=== PATIENT | male | born 1950 | race African-American/Black ===

== ENCOUNTER 2018-09-14 08:08 | Emergency (ER) | payer MEDICARE, MEDICAID ==
[~2018-09-14] VITALS: Ht 172.7 cm; Wt 71.0 kg
[2018-09-14 08:25] VITALS: BP 123/99
== END 2018-09-14 11:47 | disposition home or self-care (01) ==
LOC: ER 08:31
DX: T69.022A Immersion foot, left foot, initial encounter (principal); T69.021A Immersion foot, right foot, initial encounter; X31.XXXA Exposure to excessive natural cold, initial encounter; R03.0 Elevated blood-pressure reading, without diagnosis of hypertension; Z59.0 Homelessness; F17.210 Nicotine dependence, cigarettes, uncomplicated
CPT/HCPCS: 99283

== ENCOUNTER 2020-06-15 13:57 | Inpatient (IN) | payer MEDICARE, MEDICAID ==
[~2020-06-15] VITALS: Ht 172.7 cm; Wt 64.6 kg
[2020-06-15 15:45] LABS: BASOPHILS % 0.5 % (0.0-2.0); EOSINOPHILS % 0.5 % (0.0-5.0); HEMATOCRIT. 46.2 % (42.0-52.0); HEMOGLOBIN. 15.7 g/dL (14.0-18.0); LYMPHOCYTES % 10.9 % (20.0-50.0); MEAN CORPUSCULAR VOLUME 88.3 fL (80.0-94.0); MEAN PLATELET VOLUME 8.2 fl (7.4-10.4); MONOCYTES % 7.6 % (2.0-8.0); NEUTROPHILS % 80.5 % (40.0-76.0); PLATELET 262 x1000/uL (130-400); RED BLOOD CELL COUNT 5.23 mill/uL (4.7-6.1); RED CELL DISTRIBUTION WIDTH 13.9 % (11.6-14.6)
[2020-06-15 15:50] LABS: CHLORIDE 103 mEq/L (98-107)
[2020-06-15 15:52] LABS: INR 1.1; PROTHROMBIN TIME 11.7 sec (9.6-11.0)
[2020-06-15 15:53] LABS: ETHANOL BLOOD < 10 mg/dL
[2020-06-15 15:56] LABS: LDL CHOLESTEROL 165 mg/dL (5-100)
[2020-06-15 16:52] LABS: CLARITY URINE CLEAR (CLEAR); COLOR URINE YELLOW (YELLOW); KETONES URINE NEGATIVE (NEGATIVE); LEUKOCYTE ESTERASE URINE 1+ (NEGATIVE); NITRITE URINE POSITIVE (NEGATIVE); OCCULT BLOOD URINE 2+ (NEGATIVE); PH URINE 6.5 (4.5-8.0); PROTEIN URINE NEGATIVE (NEGATIVE); SPECIFIC GRAVITY URINE 1.004 (1.005-1.030)
[2020-06-15 17:16] LABS: *AMPHETAMINES SCREEN URINE NEGATIVE (NEGATIVE); *BARBITURATES SCREEN URINE NEGATIVE (NEGATIVE)
[2020-06-15 17:17] LABS: *BENZODIAZEPINES SCREEN URINE NEGATIVE (NEGATIVE); *COCAINE SCREEN URINE NEGATIVE (NEGATIVE); CANNABINOID URINE SCREEN NEGATIVE (NEGATIVE); METHADONE URINE SCREEN NEGATIVE (NEGATIVE); OPIATES URINE SCREEN NEGATIVE (NEGATIVE); PHENCYCLIDINE URINE SCREEN NEGATIVE (NEGATIVE)
[2020-06-15] MEDS ORDERED: DOCUSATE SODIUM 100MG CAPSULE PO PRN (18:30)
[2020-06-15] MEDS ORDERED: ONDANSETRON HCL 4MG/2ML INJ IV PRN (18:30)
[2020-06-15] MEDS ORDERED: LORAZEPAM 0.5MG TABLET PO PRN (18:30)
[2020-06-15] MEDS ORDERED: IPRATROPIUM/ALBUTEROL 0.5-3(2.5)MG/3ML NEB HHN PRN (18:30)
[2020-06-15] MEDS ORDERED: HYDROCODONE/ACETAMINOPHEN 5/325MG TABLET PO PRN (18:30)
[2020-06-15 21:10] VITALS: BP 158/99
[2020-06-16] VITALS (7 sets, daily range): BP systolic 132–161; BP diastolic 83–98
[2020-06-16 06:05] LABS: BASOPHILS % 0.6 % (0.0-2.0); EOSINOPHILS % 1.4 % (0.0-5.0); HEMATOCRIT. 44.4 % (42.0-52.0); HEMOGLOBIN. 15.1 g/dL (14.0-18.0); LYMPHOCYTES % 18.1 % (20.0-50.0); MEAN CORPUSCULAR HEMOGLOBIN 29.8 pg (28.0-32.0); MEAN CORPUSCULAR VOLUME 87.4 fL (80.0-94.0); MEAN PLATELET VOLUME 8.5 fl (7.4-10.4); MONOCYTES % 10.8 % (2.0-8.0); NEUTROPHILS % 69.1 % (40.0-76.0); PLATELET 249 x1000/uL (130-400); RED BLOOD CELL COUNT 5.08 mill/uL (4.7-6.1); RED CELL DISTRIBUTION WIDTH 13.6 % (11.6-14.6)
[2020-06-16 06:14] LABS: CHLORIDE 106 mEq/L (98-107)
[2020-06-16] MEDS ORDERED: INFLUENZA VACCINE 05/PF 0.5 ML VIAL IM ONE (12:00)
[2020-06-16] MEDS ORDERED: LORAZEPAM 2MG/ML CPJ IV SCH (13:00)
[2020-06-16] MEDS ORDERED: SODIUM CHLORIDE 0.9% 750 ML IV SCH (13:15)
[2020-06-16] MEDS: ASPIRIN 81MG TABLET PO SCH (13:22)
[2020-06-16] MEDS ORDERED: LORAZEPAM 2MG/ML CPJ IV NR ×2 (17:15)
[2020-06-16] MEDS ORDERED: GADOTERATE MEGLUMINE 5 MMOL/10 ML VIAL IV ONE (17:31)
[2020-06-16] MEDS: ATORVASTATIN CALCIUM 40MG TABLET PO SCH (21:00)
[2020-06-17] VITALS (7 sets, daily range): BP systolic 99–186; BP diastolic 65–121
[2020-06-17 06:17] LABS: HEMATOCRIT. 42.1 % (42.0-52.0); HEMOGLOBIN. 14.7 g/dL (14.0-18.0); MEAN CORPUSCULAR HEMOGLOBIN 31.3 pg (28.0-32.0); MEAN CORPUSCULAR VOLUME 89.8 fL (80.0-94.0); MEAN PLATELET VOLUME 8.5 fl (7.4-10.4); PLATELET 229 x1000/uL (130-400); RED BLOOD CELL COUNT 4.69 mill/uL (4.7-6.1); RED CELL DISTRIBUTION WIDTH 13.4 % (11.6-14.6)
[2020-06-17 06:40] LABS: CHLORIDE 105 mEq/L (98-107)
[2020-06-17 06:50] LABS: VITAMIN B12 SERUM 511 pg/mL (211-911)
[2020-06-17] MEDS: ASPIRIN 81MG TABLET PO SCH (08:05)
[2020-06-17] MEDS: LABETALOL 5MG/ML SYR 20 MG/4 ML SYRINGE IV PRN (09:35)
[2020-06-17] MEDS: NICOTINE 21MG PATCH TD SCH (10:49)
[2020-06-17] MEDS ORDERED: DIPHENHYDRAMINE 50MG/ML VIAL IV PRN (11:00)
[2020-06-17] MEDS ORDERED: HALOPERIDOL LACTATE 5MG/ML VIAL IM NR (11:00)
[2020-06-17] MEDS ORDERED: SODIUM CHLORIDE 0.9% 750 ML IV SCH (12:00)
[2020-06-17] MEDS ORDERED: IOHEXOL-350 100 ML BOTTLE ONE (13:03)
[2020-06-17] MEDS ORDERED: KCL 20MEQ/100ML PREMIX 100 ML IV NR (13:30)
[2020-06-17 20:26] LABS: PLATELET ESTIMATE NORMAL
[2020-06-17] MEDS: ATORVASTATIN CALCIUM 40MG TABLET PO SCH (21:00)
[2020-06-18] VITALS: BP 131/91
[2020-06-18] MEDS: HALOPERIDOL LACTATE 5MG/ML VIAL IM PRN ×3 (00:28→21:52)
[2020-06-18 04:00] VITALS: BP 171/111
[2020-06-18] MEDS: LABETALOL 5MG/ML SYR 20 MG/4 ML SYRINGE IV PRN (05:57)
[2020-06-18 08:00] VITALS: BP 163/103
[2020-06-18] MEDS: ASPIRIN 81MG TABLET PO SCH ×2 (08:25→10:16)
[2020-06-18] MEDS: METOPROLOL TARTRATE 25MG TABLET PO SCH ×2 (10:16→21:58)
[2020-06-18] MEDS: NICOTINE 21MG PATCH TD SCH (10:17)
[2020-06-18 12:00] VITALS: BP 155/83
[2020-06-18 16:00] VITALS: BP 134/90
[2020-06-18 20:00] VITALS: BP 160/102
[2020-06-18] MEDS: ATORVASTATIN CALCIUM 40MG TABLET PO SCH (21:58)
[2020-06-19] VITALS: BP 183/77
[2020-06-19] MEDS: LABETALOL 5MG/ML SYR 20 MG/4 ML SYRINGE IV PRN (01:42)
[2020-06-19 04:00] VITALS: BP 123/65
[2020-06-19 06:32] LABS: HEMATOCRIT. 42.7 % (42.0-52.0); HEMOGLOBIN. 14.8 g/dL (14.0-18.0); MEAN CORPUSCULAR HEMOGLOBIN 30.6 pg (28.0-32.0); MEAN CORPUSCULAR VOLUME 87.9 fL (80.0-94.0); MEAN PLATELET VOLUME 8.8 fl (7.4-10.4); PLATELET 197 x1000/uL (130-400); RED BLOOD CELL COUNT 4.85 mill/uL (4.7-6.1); RED CELL DISTRIBUTION WIDTH 13.8 % (11.6-14.6)
[2020-06-19 06:58] LABS: CHLORIDE 108 mEq/L (98-107)
[2020-06-19 07:53] VITALS: BP 130/72
[2020-06-19] MEDS: LORAZEPAM 2MG/ML CPJ IV PRN (08:41)
[2020-06-19] MEDS: ASPIRIN 81MG TABLET PO SCH (09:13)
[2020-06-19] MEDS: NICOTINE 21MG PATCH TD SCH (09:14)
[2020-06-19] MEDS: METOPROLOL TARTRATE 25MG TABLET PO SCH ×2 (09:14→21:17)
[2020-06-19 12:00] VITALS: BP 118/76
[2020-06-19 13:43] LABS: PLATELET ESTIMATE NORMAL
[2020-06-19 16:00] VITALS: BP 121/79
[2020-06-19 20:00] VITALS: BP 138/95
[2020-06-19] MEDS: QUETIAPINE FUMARATE 25MG TABLET PO SCH (21:17)
[2020-06-19] MEDS: ATORVASTATIN CALCIUM 40MG TABLET PO SCH (21:17)
[2020-06-20] VITALS: BP 136/87
[2020-06-20] MEDS: LORAZEPAM 2MG/ML CPJ IV PRN (02:34)
[2020-06-20 04:00] VITALS: BP 128/88
[2020-06-20] MEDS: ASPIRIN 81MG TABLET PO SCH (09:00)
[2020-06-20] MEDS: NICOTINE 21MG PATCH TD SCH (10:02)
[2020-06-20 10:03] LABS: MEAN CORPUSCULAR HEMOGLOBIN 31.5 pg (28.0-32.0); MEAN CORPUSCULAR VOLUME 90.4 fL (80.0-94.0); MEAN PLATELET VOLUME 8.9 fl (7.4-10.4); PLATELET 185 x1000/uL (130-400); RED BLOOD CELL COUNT 4.75 mill/uL (4.7-6.1); RED CELL DISTRIBUTION WIDTH 13.7 % (11.6-14.6)
[2020-06-20] MEDS: METOPROLOL TARTRATE 25MG TABLET PO SCH ×2 (10:03→21:02)
[2020-06-20] MEDS: QUETIAPINE FUMARATE 25MG TABLET PO SCH ×2 (10:03→21:02)
[2020-06-20] MEDS: SODIUM CHLORIDE 0.9% 1,000 ML IV SCH (12:06)
[2020-06-20 13:59] LABS: PLATELET ESTIMATE NORMAL
[2020-06-20 20:00] VITALS: BP 170/104
[2020-06-20] MEDS: LABETALOL 5MG/ML SYR 20 MG/4 ML SYRINGE IV PRN (21:02)
[2020-06-20] MEDS: ATORVASTATIN CALCIUM 40MG TABLET PO SCH (21:02)
[2020-06-21] VITALS: BP 154/96
[2020-06-21 04:00] VITALS: BP 152/81
[2020-06-21] MEDS: SODIUM CHLORIDE 0.9% 1,000 ML IV SCH ×2 (04:52→21:17)
[2020-06-21 07:25] LABS: BASOPHILS % 0.5 % (0.0-2.0); EOSINOPHILS % 0.2 % (0.0-5.0); HEMATOCRIT. 45.1 % (42.0-52.0); HEMOGLOBIN. 15.4 g/dL (14.0-18.0); LYMPHOCYTES % 13.9 % (20.0-50.0); MEAN CORPUSCULAR HEMOGLOBIN 30.5 pg (28.0-32.0); MEAN CORPUSCULAR VOLUME 89.3 fL (80.0-94.0); MEAN PLATELET VOLUME 8.9 fl (7.4-10.4); MONOCYTES % 11.4 % (2.0-8.0); PLATELET 182 x1000/uL (130-400); RED BLOOD CELL COUNT 5.05 mill/uL (4.7-6.1); RED CELL DISTRIBUTION WIDTH 13.8 % (11.6-14.6)
[2020-06-21 07:42] LABS: CHLORIDE 113 mEq/L (98-107)
[2020-06-21 07:57] VITALS: BP 141/84
[2020-06-21] MEDS: METOPROLOL TARTRATE 25MG TABLET PO SCH ×2 (08:48→21:17)
[2020-06-21] MEDS: QUETIAPINE FUMARATE 25MG TABLET PO SCH ×2 (08:49→21:16)
[2020-06-21] MEDS: NICOTINE 21MG PATCH TD SCH (08:49)
[2020-06-21 11:34] VITALS: BP 142/77
[2020-06-21 16:12] VITALS: BP 94/70
[2020-06-21 20:00] VITALS: BP 159/99
[2020-06-21] MEDS: ATORVASTATIN CALCIUM 40MG TABLET PO SCH (21:17)
[2020-06-22 00:48] VITALS: BP 137/80
[2020-06-22 04:00] VITALS: BP 168/103
[2020-06-22] MEDS: LABETALOL 5MG/ML SYR 20 MG/4 ML SYRINGE IV PRN (04:16)
[2020-06-22 07:20] LABS: BASOPHILS % 0.6 % (0.0-2.0); EOSINOPHILS % 0.1 % (0.0-5.0); HEMOGLOBIN. 15.4 g/dL (14.0-18.0); LYMPHOCYTES % 12.4 % (20.0-50.0); MEAN CORPUSCULAR HEMOGLOBIN 30.8 pg (28.0-32.0); MONOCYTES % 13.6 % (2.0-8.0); NEUTROPHILS % 73.3 % (40.0-76.0); PLATELET 151 x1000/uL (130-400); RED CELL DISTRIBUTION WIDTH 13.6 % (11.6-14.6)
[2020-06-22 07:28] LABS: CHLORIDE 117 mEq/L (98-107)
[2020-06-22 08:20] VITALS: BP 133/92
[2020-06-22] MEDS: NICOTINE 21MG PATCH TD SCH (09:29)
[2020-06-22] MEDS: QUETIAPINE FUMARATE 25MG TABLET PO SCH ×2 (09:29→21:12)
[2020-06-22] MEDS: METOPROLOL TARTRATE 25MG TABLET PO SCH ×2 (09:29→21:12)
[2020-06-22] MEDS: HALOPERIDOL LACTATE 5MG/ML VIAL IM PRN ×2 (09:54→21:10)
[2020-06-22] MEDS: SODIUM CHLORIDE 0.45% 1,000 ML IV SCH (13:01)
[2020-06-22] MEDS ORDERED: LORAZEPAM 2MG/ML CPJ IV NR (15:00)
[2020-06-22 16:17] VITALS: BP 130/69
[2020-06-22 20:38] VITALS: BP 131/86
[2020-06-22] MEDS: ATORVASTATIN CALCIUM 40MG TABLET PO SCH (21:11)
[2020-06-22] MEDS: ACETAMINOPHEN 325MG TABLET PO PRN (21:22)
[2020-06-23 00:25] LABS: BG BASE EXCESS -1.4 mmol/L (-2.0-2.0); BG CARBOXYHEMOGLOBIN 0.8 % (0.5-1.5); BG DEOXYHEMOGLOBIN 1.6 % (0.0-5.0); BG FRACTION INSPIRED OXYGEN 32; BG HCO3 ACT 23.5 mmol/L (22.0-26.0); BG METHEMOGLOBIN 0.4 % (0.0-1.5); BG OXYGEN SATURATION 98.4 % (92.0-98.5); BG OXYHEMOGLOBIN 97.2 % (94.0-97.0); BG PCO2 40.6 mmHg (35.0-45.0); BG PH 7.381 (7.350-7.450); BG PO2 128.3 mmHg (75.0-100.0); BG SAMPLE SITE RIGHT RADIAL; BG TOTAL HEMOGLOBIN 14.7 g/dL (12.0-18.0); BG VENT MODE NASAL CANNULA
[2020-06-23] MEDS: LABETALOL 5MG/ML SYR 20 MG/4 ML SYRINGE IV PRN (02:17)
[2020-06-23 04:00] VITALS: BP 129/71
[2020-06-23] MEDS: SODIUM CHLORIDE 0.45% 1,000 ML IV SCH (05:35)
[2020-06-23 06:43] LABS: BASOPHILS % 0.6 % (0.0-2.0); HEMATOCRIT. 41.1 % (42.0-52.0); LYMPHOCYTES % 13.2 % (20.0-50.0); MEAN CORPUSCULAR HEMOGLOBIN 31.1 pg (28.0-32.0); MEAN CORPUSCULAR VOLUME 91.1 fL (80.0-94.0); MEAN PLATELET VOLUME 9.3 fl (7.4-10.4); MONOCYTES % 14.2 % (2.0-8.0); PLATELET 131 x1000/uL (130-400); RED BLOOD CELL COUNT 4.51 mill/uL (4.7-6.1); RED CELL DISTRIBUTION WIDTH 13.8 % (11.6-14.6)
[2020-06-23 07:50] LABS: CHLORIDE 120 mEq/L (98-107)
[2020-06-23 08:07] VITALS: BP 129/83
[2020-06-23] MEDS: METOPROLOL TARTRATE 25MG TABLET PO SCH (09:18)
[2020-06-23] MEDS: NICOTINE 21MG PATCH TD SCH (09:18)
[2020-06-23 12:29] VITALS: BP 125/86
[2020-06-23 15:57] VITALS: BP 139/92
[2020-06-23 16:57] LABS: BG BASE EXCESS -1.5 mmol/L (-2.0-2.0); BG CARBOXYHEMOGLOBIN 0.7 % (0.5-1.5); BG DEOXYHEMOGLOBIN 3.8 % (0.0-5.0); BG FRACTION INSPIRED OXYGEN 28; BG HCO3 ACT 23.1 mmol/L (22.0-26.0); BG METHEMOGLOBIN 0.4 % (0.0-1.5); BG OXYGEN SATURATION 96.2 % (92.0-98.5); BG OXYHEMOGLOBIN 95.1 % (94.0-97.0); BG PH 7.391 (7.350-7.450); BG PO2 85.6 mmHg (75.0-100.0); BG SAMPLE SITE RIGHT BRACHIAL; BG TOTAL HEMOGLOBIN 15.7 g/dL (12.0-18.0); BG VENT MODE NASAL CANNULA
[2020-06-23 20:00] VITALS: BP 154/116
[2020-06-23] MEDS ORDERED: DEXTROSE 5% WATER 1,000 ML IV SCH (21:00)
[2020-06-23] MEDS: ATORVASTATIN CALCIUM 40MG TABLET PO SCH (22:24)
[2020-06-23] MEDS: METOCLOPRAMIDE HCL 10MG/2ML VIAL IV SCH (23:02)
[2020-06-24] VITALS: BP 159/104
[2020-06-24] MEDS: DEXTROSE 5% WATER 1,000 ML IV SCH ×2 (02:30→16:13)
[2020-06-24] MEDS: METOCLOPRAMIDE HCL 10MG/2ML VIAL IV SCH ×4 (04:59→23:21)
[2020-06-24 06:29] LABS: BASOPHILS % 0.5 % (0.0-2.0); HEMATOCRIT. 38.5 % (42.0-52.0); LYMPHOCYTES % 9.2 % (20.0-50.0); MEAN CORPUSCULAR HEMOGLOBIN 28.3 pg (28.0-32.0); MEAN CORPUSCULAR VOLUME 94.6 fL (80.0-94.0); MEAN PLATELET VOLUME 9.5 fl (7.4-10.4); MONOCYTES % 8.7 % (2.0-8.0); NEUTROPHILS % 81.6 % (40.0-76.0); PLATELET 103 x1000/uL (130-400); RED BLOOD CELL COUNT 4.07 mill/uL (4.7-6.1); RED CELL DISTRIBUTION WIDTH 14.6 % (11.6-14.6)
[2020-06-24 06:40] LABS: CHLORIDE 109 mEq/L (98-107)
[2020-06-24 06:51] LABS: INR 1.2; PROTHROMBIN TIME 12.7 sec (9.6-11.0)
[2020-06-24 08:00] VITALS: BP 125/68
[2020-06-24 08:00] LABS: HEMOGLOBIN. 11.5 g/dL (14.0-18.0)
[2020-06-24] MEDS: NICOTINE 21MG PATCH TD SCH (09:17)
[2020-06-24 12:00] VITALS: BP 119/81
[2020-06-24] MEDS ORDERED: POLYETHYLENE GLYCOL 3350 (17GM) 1 DOSE PACK NG PRN (12:15)
[2020-06-24] MEDS ORDERED: POTASSIUM CHLORIDE 20MEQ/PACKET NG NR (12:15)
[2020-06-24 16:00] VITALS: BP 109/71
[2020-06-24] MEDS: ACETAMINOPHEN 325MG TABLET PO PRN (18:16)
[2020-06-24 20:00] VITALS: BP 117/77
[2020-06-24] MEDS: ATORVASTATIN CALCIUM 40MG TABLET PO SCH (21:04)
[2020-06-24] MEDS: SENNOSIDES/DOCUSATE SOD 8.6/50MG TABLET NG SCH (21:04)
[2020-06-25] VITALS: BP 127/84
[2020-06-25 04:00] VITALS: BP 118/78
[2020-06-25] MEDS: DEXTROSE 5% WATER 1,000 ML IV SCH ×2 (05:52→19:42)
[2020-06-25] MEDS: METOCLOPRAMIDE HCL 10MG/2ML VIAL IV SCH ×3 (05:53→18:00)
[2020-06-25 07:38] LABS: BASOPHILS % 0.4 % (0.0-2.0); HEMATOCRIT. 44.2 % (42.0-52.0); HEMOGLOBIN. 14.8 g/dL (14.0-18.0); LYMPHOCYTES % 7.4 % (20.0-50.0); MEAN CORPUSCULAR HEMOGLOBIN 30.1 pg (28.0-32.0); MEAN CORPUSCULAR VOLUME 89.8 fL (80.0-94.0); MEAN PLATELET VOLUME 9.9 fl (7.4-10.4); MONOCYTES % 7.9 % (2.0-8.0); NEUTROPHILS % 84.3 % (40.0-76.0); PLATELET 108 x1000/uL (130-400); RED BLOOD CELL COUNT 4.92 mill/uL (4.7-6.1)
[2020-06-25 08:00] VITALS: BP 127/81
[2020-06-25 08:13] LABS: CHLORIDE 113 mEq/L (98-107)
[2020-06-25] MEDS: NICOTINE 21MG PATCH TD SCH (09:52)
[2020-06-25 12:00] VITALS: BP 136/93
[2020-06-25 16:00] VITALS: BP 134/58
[2020-06-25 20:00] VITALS: BP 127/90
[2020-06-25] MEDS: ATORVASTATIN CALCIUM 40MG TABLET PO SCH (21:41)
[2020-06-25] MEDS: SENNOSIDES/DOCUSATE SOD 8.6/50MG TABLET NG SCH (21:41)
[2020-06-26] VITALS: BP 120/81
[2020-06-26] MEDS: METOCLOPRAMIDE HCL 10MG/2ML VIAL IV SCH ×4 (00:31→18:23)
[2020-06-26] MEDS: ACETAMINOPHEN 325MG TABLET PO PRN ×2 (01:09→21:31)
[2020-06-26 04:00] VITALS: BP 111/65
[2020-06-26 08:00] VITALS: BP 114/82
[2020-06-26] MEDS: NICOTINE 21MG PATCH TD SCH (09:12)
[2020-06-26] MEDS: DEXTROSE 5% WATER 1,000 ML IV SCH (09:17)
[2020-06-26 10:31] LABS: BASOPHILS % 0.3 % (0.0-2.0); HEMATOCRIT. 43.5 % (42.0-52.0); HEMOGLOBIN. 14.3 g/dL (14.0-18.0); LYMPHOCYTES % 9.3 % (20.0-50.0); MEAN CORPUSCULAR HEMOGLOBIN 29.2 pg (28.0-32.0); MEAN CORPUSCULAR VOLUME 88.9 fL (80.0-94.0); MEAN PLATELET VOLUME 10.7 fl (7.4-10.4); MONOCYTES % 9.7 % (2.0-8.0); NEUTROPHILS % 80.7 % (40.0-76.0); PLATELET 122 x1000/uL (130-400); RED BLOOD CELL COUNT 4.89 mill/uL (4.7-6.1); RED CELL DISTRIBUTION WIDTH 13.8 % (11.6-14.6)
[2020-06-26 10:43] LABS: CHLORIDE 109 mEq/L (98-107)
[2020-06-26 12:00] VITALS: BP 106/73
[2020-06-26 16:00] VITALS: BP 112/81
[2020-06-26 20:00] VITALS: BP 111/73
[2020-06-26] MEDS: ATORVASTATIN CALCIUM 40MG TABLET PO SCH (21:30)
[2020-06-26] MEDS: SENNOSIDES/DOCUSATE SOD 8.6/50MG TABLET NG SCH (21:30)
[2020-06-27] VITALS: BP 117/66
[2020-06-27] MEDS: METOCLOPRAMIDE HCL 10MG/2ML VIAL IV SCH ×4 (00:03→17:44)
[2020-06-27 04:00] VITALS: BP 125/71
[2020-06-27] MEDS: DEXTROSE 5% WATER 1,000 ML IV SCH ×3 (04:50→22:00)
[2020-06-27] MEDS: ACETAMINOPHEN 325MG TABLET PO PRN ×3 (04:55→18:10)
[2020-06-27 06:27] LABS: BASOPHILS % 0.2 % (0.0-2.0); HEMATOCRIT. 37.9 % (42.0-52.0); HEMOGLOBIN. 12.5 g/dL (14.0-18.0); LYMPHOCYTES % 7.1 % (20.0-50.0); MEAN CORPUSCULAR HEMOGLOBIN 28.8 pg (28.0-32.0); MEAN CORPUSCULAR VOLUME 87.4 fL (80.0-94.0); MONOCYTES % 7.4 % (2.0-8.0); NEUTROPHILS % 85.3 % (40.0-76.0); PLATELET 141 x1000/uL (130-400); RED BLOOD CELL COUNT 4.33 mill/uL (4.7-6.1); RED CELL DISTRIBUTION WIDTH 13.5 % (11.6-14.6)
[2020-06-27 06:32] LABS: CHLORIDE 106 mEq/L (98-107)
[2020-06-27 08:00] VITALS: BP 106/66
[2020-06-27] MEDS ORDERED: POTASSIUM CHLORIDE 20MEQ/PACKET NG NR (08:30)
[2020-06-27] MEDS: NICOTINE 21MG PATCH TD SCH (09:23)
[2020-06-27 12:00] VITALS: BP 129/73
[2020-06-27 16:00] VITALS: BP 149/74
[2020-06-27] MEDS ORDERED: METOPROLOL TARTRATE 5MG/5ML VIAL IV NR (17:00)
[2020-06-27 20:00] VITALS: BP 104/48
[2020-06-27] MEDS ORDERED: METOPROLOL TARTRATE 25MG TABLET PO SCH (21:00)
[2020-06-27] MEDS: ATORVASTATIN CALCIUM 40MG TABLET PO SCH (21:55)
[2020-06-27] MEDS: SENNOSIDES/DOCUSATE SOD 8.6/50MG TABLET NG SCH (21:55)
[2020-06-28] VITALS (20 sets, daily range): BP systolic 56–211; BP diastolic 39–120
[2020-06-28] MEDS: METOCLOPRAMIDE HCL 10MG/2ML VIAL IV SCH ×3 (00:43→12:28)
[2020-06-28] MEDS: ACETAMINOPHEN 325MG TABLET PO PRN ×2 (00:44→08:47)
[2020-06-28] MEDS ORDERED: POTASSIUM CHLORIDE 20MEQ/PACKET PO SCH (01:15)
[2020-06-28] MEDS: HALOPERIDOL LACTATE 5MG/ML VIAL IM PRN (03:59)
[2020-06-28 06:23] LABS: BG BASE EXCESS -3.4 mmol/L (-2.0-2.0); BG CARBOXYHEMOGLOBIN 0.7 % (0.5-1.5); BG DEOXYHEMOGLOBIN 17.2 % (0.0-5.0); BG FRACTION INSPIRED OXYGEN 100; BG HCO3 ACT 17.2 mmol/L (22.0-26.0); BG OXYGEN SATURATION 82.7 % (92.0-98.5); BG OXYHEMOGLOBIN 82.1 % (94.0-97.0); BG PCO2 21.4 mmHg (35.0-45.0); BG PH 7.523 (7.350-7.450); BG PO2 42.8 mmHg (75.0-100.0); BG TOTAL HEMOGLOBIN 13.9 g/dL (12.0-18.0); BG VENT MODE MASK - NRB
[2020-06-28] MEDS ORDERED: ADENOSINE 3 MG/ML 2ML VIAL IV NR (06:45)
[2020-06-28] MEDS ORDERED: ADENOSINE 3 MG/ML 2ML VIAL IV PRN (06:45)
[2020-06-28 07:01] LABS: HEMATOCRIT. 39.9 % (42.0-52.0); HEMOGLOBIN. 13.4 g/dL (14.0-18.0); MEAN CORPUSCULAR HEMOGLOBIN 29.3 pg (28.0-32.0); MEAN CORPUSCULAR VOLUME 87.4 fL (80.0-94.0); MEAN PLATELET VOLUME 11.4 fl (7.4-10.4); PLATELET 161 x1000/uL (130-400); RED BLOOD CELL COUNT 4.57 mill/uL (4.7-6.1); RED CELL DISTRIBUTION WIDTH 13.5 % (11.6-14.6)
[2020-06-28 07:09] LABS: CHLORIDE 101 mEq/L (98-107)
[2020-06-28] MEDS ORDERED: FENTANYL CITRATE/PF 2,500 MCG in SODIUM CHLORIDE 0.9% 200 ML IV PRN (09:15)
[2020-06-28] MEDS ORDERED: MIDAZOLAM HCL 100 MG in DEXT 5% WATER 80 ML IV PRN (09:15)
[2020-06-28] MEDS ORDERED: PHENYLEPHRINE 100 MG in DEXT 5% WATER 240 ML IV PRN (09:30)
[2020-06-28] MEDS ORDERED: LIDOCAINE HCL 1% 20ML VIAL (Pyxis) INJ ONE (09:38)
[2020-06-28] MEDS ORDERED: DEXT 5%/0.9% NACL 1,000 ML IV SCH (10:15)
[2020-06-28] MEDS ORDERED: DOPAMINE 400MG/250ML PREMIX 250 ML IV PRN (10:15)
[2020-06-28] MEDS ORDERED: EPINEPHRINE 10 MG in SODIUM CHLORIDE 0.9% 240 ML IV PRN (10:30)
[2020-06-28 10:49] LABS: TOTAL IRON BINDING CAPACITY 158 ug/dL (250-450)
[2020-06-28 11:15] LABS: BG BASE EXCESS -21.6 mmol/L (-2.0-2.0); BG CARBOXYHEMOGLOBIN 0.3 % (0.5-1.5); BG DEOXYHEMOGLOBIN 5.1 % (0.0-5.0); BG FRACTION INSPIRED OXYGEN 100; BG HCO3 ACT 10.7 mmol/L (22.0-26.0); BG METHEMOGLOBIN 0.7 % (0.0-1.5); BG OXYGEN SATURATION 94.8 % (92.0-98.5); BG OXYHEMOGLOBIN 93.9 % (94.0-97.0); BG PCO2 53.1 mmHg (35.0-45.0); BG PH 6.921 (7.350-7.450); BG PO2 119.2 mmHg (75.0-100.0); BG SAMPLE SITE LEFT FEMORAL; BG TOTAL HEMOGLOBIN 11.6 g/dL (12.0-18.0); BG VENT MODE PRVC
[2020-06-28 11:35] LABS: C REACTIVE PROTEIN CARDIAC > 190.00 mg/L (0.00-3.00)
[2020-06-28] MEDS ORDERED: VASOPRESSIN 20 UNIT in SODIUM CHLORIDE 0.9% 99 ML IV PRN (12:00)
[2020-06-28] MEDS ORDERED: SODIUM BICARBONATE 8.4% 1 MEQ/ML 50ML SYR IV NR (12:15)
[2020-06-28] MEDS ORDERED: DEXAMETHASONE 4MG TABLET PO SCH (13:30)
[2020-06-28] MEDS ORDERED: SODIUM BICARBONATE 8.4% 1 MEQ/ML 50ML SYR IV ONE (13:51)
[2020-06-28] MEDS ORDERED: CEFTRIAXONE 2 G PREMIX 50 ML IV SCH (14:45)
[2020-06-28] MEDS ORDERED: SODIUM BICARBONATE 100 MEQ in DEXTROSE 5% WATER 1,000 ML IV SCH (15:00)
[2020-06-28] MEDS ORDERED: CEFTRIAXONE 2 G in DEXTROSE 5% WATER 50 ML IV SCH (16:00)
[2020-06-28] MEDS ORDERED: METRONIDAZOLE 500 MG PREMIX 100 ML IV SCH (16:00)
[2020-06-28 16:33] LABS: PLATELET ESTIMATE NORMAL
== END 2020-06-28 13:45 | disposition expired | DRG 45 ==
LOC: ER 14:09 → 6WST 17:30 → EDBEDREQ 17:41 → EDBEDREQSVC 17:41 → ENRESERV 20:08 → 6WST 06-16 20:30 → 7WST 06-24 04:43 → MICUSO 06-28 08:26
PROVIDERS: ADMIT Internal Medicine; ATTEND Internal Medicine
PROC: 5A12012 Performance of Cardiac Output, Single, Manual (ICD-10-PCS; principal; 2020-06-28)
PROC: 02HV33Z Insertion of Infusion Device into Superior Vena Cava, Percutaneous Approach (ICD-10-PCS; 2020-06-28)
PROC: B548ZZA Ultrasonography of Superior Vena Cava, Guidance (ICD-10-PCS; 2020-06-28)
PROC: 5A09357 Assistance with Respiratory Ventilation, Less than 24 Consecutive Hours, Continuous Positive Airway Pressure (ICD-10-PCS; 2020-06-28)
PROC: 0BH17EZ Insertion of Endotracheal Airway into Trachea, Via Natural or Artificial Opening (ICD-10-PCS; 2020-06-28)
PROC: 5A1935Z Respiratory Ventilation, Less than 24 Consecutive Hours (ICD-10-PCS; 2020-06-28)
DX: I63.9 Cerebral infarction, unspecified (principal); U07.1 COVID-19; E46 Unspecified protein-calorie malnutrition; E78.5 Hyperlipidemia, unspecified; I10 Essential (primary) hypertension; R31.9 Hematuria, unspecified; R82.71 Bacteriuria; I67.4 Hypertensive encephalopathy; F17.210 Nicotine dependence, cigarettes, uncomplicated; E87.0 Hyperosmolality and hypernatremia; I11.0 Hypertensive heart disease with heart failure; I48.0 Paroxysmal atrial fibrillation; I65.23 Occlusion and stenosis of bilateral carotid arteries; I65.02 Occlusion and stenosis of left vertebral artery; I46.9 Cardiac arrest, cause unspecified; I16.0 Hypertensive urgency; I47.1 Supraventricular tachycardia; I49.3 Ventricular premature depolarization; R13.10 Dysphagia, unspecified; R47.1 Dysarthria and anarthria; D68.59 Other primary thrombophilia; J96.01 Acute respiratory failure with hypoxia; A41.89 Other specified sepsis; J12.89 Other viral pneumonia; I50.23 Acute on chronic systolic (congestive) heart failure; R29.810 Facial weakness; E87.6 Hypokalemia; Z86.73 Personal history of transient ischemic attack (TIA), and cerebral infarction without residual deficits; Z78.1 Physical restraint status; Z88.6 Allergy status to analgesic agent
CPT/HCPCS: 36415; 36600; 70496; 70498; 70544; 70551; 70553; 71045; 74018; 80048; 80053; 80061; 80305; 80320; 81003; 82375; 82607; 82805; 82962; 83036; 83540; 83550; 83605; 83721; 83735; 84132; 84145; 84295; 84443; 84484; 85025; 85379; 86141; 87426; 90686; 92610; 93005; 93306; 97110; 97112; 97162; 97166; 97530; 97535; 99291; A9577; J0153; J0696; J1200; J1630; J2060; J2370; J2405; J2765; J3480; J3490; J7030; J7040; J7042; J7060; J7070; Q9967; U0003; A4315; G0480